=== PATIENT | male | born 1990 | race Caucasian/White ===

== ENCOUNTER 2018-08-17 21:36 | Emergency (ER) | payer OTHER ==
[2018-08-17] MEDS ORDERED: Albuterol-Ipratrop 3 mg / 0.5 (3 ml) UD INH STA (22:03)
[2018-08-17] MEDS ORDERED: Albuterol-Ipratrop 3 mg / 0.5 (3 ml) UD ONE ×3 (22:08→23:55)
--- NOTE | 2018-08-17 23:31 | C.PDOC ---
History Of Present Illness 27 year old male presents with fever and cough for the past week with positive chest tightness. Patient has a Hx of asthma with no attack in the past 3 years, has no asthma meds at home. He is a nonsmoker. Notes tightness worsens with exertion. Denies other complaints at this time. Time Seen by Provider: 08/17/18 22:35 Chief Complaint (Nursing): Shortness Of Breath History Per: Patient History/Exam Limitations: no limitations Onset/Duration Of Symptoms: Days (1 week) Current Symptoms Are (Timing): Still Present Quality: Tightness Exacerbating Factor(s): Exertion Current Respiratory Medications: None Associated Symptoms: Fever, Other (Cough) Past Medical History Reviewed: Historical Data, Nursing Documentation, Vital Signs Vital Signs: Last Vital Signs Temp 101 F H 08/17/18 21:57 Pulse 101 H 08/17/18 21:57 Resp 20 08/17/18 22:48 BP 149/87 08/17/18 21:57 Pulse Ox 95 08/17/18 21:57 - Medical History PMH: Asthma ( A CHILD) Denies: Chronic Kidney Disease Family History: States: No Known Family Hx - Social History Hx Alcohol Use: Yes Hx Substance Use: No - Immunization History Hx Tetanus Toxoid Vaccination: No Hx Influenza Vaccination: No Hx Pneumococcal Vaccination: No Review Of Systems Except As Marked, All Systems Reviewed And Found Negative. Constitutional: Positive for: Fever Respiratory: Positive for: Cough, Other (Chest tightness) Gastrointestinal: Negative for: Nausea, Vomiting Physical Exam - Physical Exam Appears: Non-toxic Skin: Normal Color, Warm, Dry Head: Atraumatic, Normacephalic Eye(s): bilateral: Normal Inspection Ear(s): Bilateral: Normal Nose: Normal Oral Mucosa: Moist Throat: Normal, No Erythema, No Exudate Neck: Normal, Supple Chest: Symmetrical, No Tenderness Cardiovascular: Rhythm Regular Respiratory: Wheezing (Expiratory), Other (Speaking in complete sentences) Gastrointestinal/Abdominal: Soft, No Tenderness Neurological/Psych: Oriented x3, Normal Speech ED Course And Treatment O2 Sat by Pulse Oximetry: 95 (Room air) Pulse Ox Interpretation: Normal - Radiology CXR: Interpreted by Me CXR Interpretation: Yes: Infiltrates (interstit infil) Reevaluation Time: 23:49 Reassessment Condition: Improved Medical Decision Making Medical Decision Making: Plan: * CXR * Javi * Shane * Tylenol * Zithromax * Prednisone Disposition Counseled Patient/Family Regarding: Studies Performed, Diagnosis, Need For Followup, Rx Given - Disposition Referrals: YOUR,PMD [Other] [facility] [Outside] [facility] [Outside] Disposition: HOME/ ROUTINE Disposition Time: 23:29 Condition: IMPROVED Prescriptions: Albuterol HFA [Ventolin HFA 90 mcg/actuation (8 g)] 1 puff IH Q4 #1 inhaler Azithromycin 1 tab PO DAILY #4 tab Benzonatate [Tessalon Perles] 200 mg PO TID PRN #15 sgl PRN Reason: Cough predniSONE [Prednisone] 60 mg PO DAILY #12 tab Instructions: Asthma, Child (DC), Community-Acquired Pneumonia in Adults Forms: [facility] (Hungarian), Work Excuse - Clinical Impression Clinical Impression: Asthma exacerbation, Pneumonia - Scribe Statement The provider has reviewed the documentation as recorded by the Scribe Duran Castellano All medical record entries made by the Scribe were at my direction and personally dictated by me. I have reviewed the chart and agree that the record accurately reflects my personal performance of the history, physical exam, medical decision making, and the department course for this patient. I have also personally directed, reviewed, and agree with the discharge instructions and disposition.
[2018-08-17] MEDS: Albuterol-Ipratrop 3 mg / 0.5 (3 ml) UD IH SCH ×2 (23:49→23:50)
[2018-08-18 00:29] VITALS: BP 141/74; PULSE 110; RESP 16; TEMP 99.5; O2SAT 96
--- NOTE | 2018-08-18 11:20 | RAD ---
HISTORY: FEVER COUGH COMPARISON: Chest x-ray performed 07/25/12 TECHNIQUE: Chest PA and lateral FINDINGS: LUNGS: Bilateral central vascular prominence. Interstitial prominence may reflect infection or edema. Curvilinear opacity at the right lung apex may reflect confluence of shadows. Recommend follow-up chest PA and lateral or CT of the chest upon completion of treatment of acute symptoms. Please note that chest x-ray has limited sensitivity for the detection of pulmonary masses. PLEURA: No significant pleural effusion identified. No definite pneumothorax . CARDIOVASCULAR: The cardiomediastinal silhouette appears within normal limits of size. No atherosclerotic calcification present. OSSEOUS STRUCTURES: No acute osseous abnormality identified. VISUALIZED UPPER ABDOMEN: Unremarkable. OTHER FINDINGS: None. IMPRESSION: Bilateral central vascular prominence. Interstitial prominence may reflect infection or edema. Curvilinear opacity at the right lung apex may reflect confluence of shadows. Recommend follow-up chest PA and lateral or CT of the chest upon completion of treatment of acute symptoms. Study marked for PA review.
== END 2018-08-18 00:29 | disposition home or self-care (01) ==
LOC: C.ER 21:36
DX: J18.9 Pneumonia, unspecified organism (principal); J45.901 Unspecified asthma with (acute) exacerbation